=== PATIENT | female | born 1990 | race Caucasian/White ===

== ENCOUNTER 2017-07-13 08:25 | Day surgery (SDC) | payer OTHER ==
[~2017-07-13] VITALS: Ht 165.1 cm; Wt 70.8 kg
[~2017-07-13 08:25] MED LIST: FERROUS GLUCON324 MG PO; IBUPROFEN800 MG PO; PRENATAL TABLE1 EAC3 PO; PROZAC10 MG PO; PROZAC40 MG PO; TRAZODONE HCL50 MG PO; TUMS500 MG PO; ZANTAC150 MG PO
[2017-07-13 09:01] VITALS: BP 125/83
[2017-07-13 09:15] LABS: HEMATOCRIT 44.2 % (36.0-46.0); HEMOGLOBIN 14.5 G/DL (11.9-15.5)
[2017-07-13] MEDS ORDERED: IBUPROFEN800 MG PO (12:22)
[2017-07-13] MEDS ORDERED: ENDOCET 5-3251 EACH PO (12:22)
[2017-07-13 13:35] VITALS: BP 124/81
[2017-07-13 14:31] VITALS: BP 133/95
== END 2017-07-13 14:32 | disposition home or self-care (01) ==
LOC: SDC 08:25
PROVIDERS: Obstetrics & Gynecology
PROC: 0WPG4YZ Removal of Other Device from Peritoneal Cavity, Percutaneous Endoscopic Approach (ICD-10-PCS; principal; 2017-07-13)
DX: T83.32XA Displacement of intrauterine contraceptive device, initial encounter (principal); Y76.2 Prosthetic and other implants, materials and accessory obstetric and gynecological devices associated with adverse incidents; F17.200 Nicotine dependence, unspecified, uncomplicated; Z88.0 Allergy status to penicillin; Z88.1 Allergy status to other antibiotic agents; Z88.2 Allergy status to sulfonamides; Z88.8 Allergy status to other drugs, medicaments and biological substances; Z82.49 Family history of ischemic heart disease and other diseases of the circulatory system; Z83.3 Family history of diabetes mellitus; Z80.3 Family history of malignant neoplasm of breast; Z83.49 Family history of other endocrine, nutritional and metabolic diseases
CPT/HCPCS: 84702; 85014; 85018; 86850; 86900; 86901; J0330; J1100; J1170; J1885; J2405; J3010; Q0175; S0020